=== PATIENT | male | born 1955 | race Caucasian/White ===

== ENCOUNTER 2017-12-19 09:18 | Emergency (ER) | payer BC, OTHER ==
[~2017-12-19] VITALS: Ht 170.2 cm; Wt 70.0 kg
[2017-12-19 09:26] VITALS: BP 164/77; PULSE 54; RESP 18; TEMP 99.4; O2SAT 97
[2017-12-19 09:30] VITALS: BP 138/94; PULSE 69; RESP 20; TEMP 99.4; O2SAT 97
[2017-12-19] MEDS ORDERED: DOXYCYCLINE HYCLATE 100 MG CAP PO ONE (10:00)
[2017-12-19] MEDS ORDERED: CIPROFLOXACIN 500 MG TAB PO ONE (10:00)
[2017-12-19] MEDS ORDERED: TETANUS/DIPHTHERIA TOXOID ADULT 0.5 ML VIAL IM ONE (10:00)
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
[2017-12-19] MEDS ORDERED: CIPR250T52 PO (11:04)
[2017-12-19] MEDS ORDERED: IBUP-232 PO (11:04)
[2017-12-19] MEDS ORDERED: DOXY100C PO (11:04)
== END 2017-12-19 12:10 | disposition home or self-care (01) ==
LOC: NEPD 09:18
DX: L03.116 Cellulitis of left lower limb (principal); Z23 Encounter for immunization
CPT/HCPCS: 73630; 90471; 90714